=== PATIENT | male | born 1965 | race Two or more races ===

== ENCOUNTER 2021-05-13 14:31 | Emergency (ER) | payer MEDICAID, OTHER ==
[~2021-05-13] VITALS: Ht 188 cm; Wt 81.2 kg
[2021-05-13 15:34] VITALS: BP 141/84
== END 2021-05-13 21:05 | disposition left against medical advice (07) ==
LOC: ER 14:31
DX: M79.605 Pain in left leg (principal); Z53.21 Procedure and treatment not carried out due to patient leaving prior to being seen by health care provider